=== PATIENT | male | born 1995 | race Hispanic/Latino ===

== ENCOUNTER 2019-11-07 12:21 | Emergency (ER) | payer SELFPAY ==
[~2019-11-07 12:21] MED LIST: BENADRYL25 M1 PO; ELIMITE60 GM EX
[2019-11-07 13:00] LABS: HEMATOCRIT 43.2 % (39.0-50.0); HEMOGLOBIN 15.1 g/dl (14.0-18.0); IMMATURE GRANULOCYTES 0.4 % (0.0-5.0); MEAN CORPUSCULAR HGB 30.4 pG CALC (26.0-32.0); NEUT# 5.7 thou/uL (1.82-7.42); RED BLOOD COUNT 4.97 mill/uL (4.70-6.10); RED CELL DISTRI WIDTH 12.4 % (11.5-15.5)
[2019-11-07 13:01] LABS: MEAN CELL VOLUME 86.9 fL CALC (80.0-100.0)
[2019-11-07 13:16] LABS: ALBUMIN 4.6 g/dL (3.2-5.0); ALKALINE PHOSPHATASE 80 u/l (38-126); ANION GAP 11 (6-22 (CALC)); BILIRUBIN, TOTAL 0.6 mg/dL (0.0-1.4); BUN 12 mg/dL (9-20); BUN/CREATININE RATIO 14 (12-20 (CALC)); C-REACTIVE PROTEIN 0.9 mg/dL (0-0.9); CARBON DIOXIDE 28 mmol/l (22-30); CHLORIDE 102 mmol/l (95-108); CREATININE 0.9 mg/dL (0.7-1.3); GFR > 60 ML/MIN (>=60 (CALC)); GFR FOR AFR.AMER. > 60 ML/MIN (>=60 (CALC)); POTASSIUM 3.8 mmol/l (3.5-5.1); SGOT/AST 39 u/l (17-59); SODIUM 138 mmol/l (137-146); TOTAL PROTEIN 7.8 g/dL (6.3-8.2)
[2019-11-07 13:20] LABS: URINE BILIRUBIN - DIPSTICK NEGATIVE (NEGATIVE); URINE BLOOD DIPSTICK NEGATIVE (NEGATIVE); URINE CLARITY CLEAR; URINE COLOR YELLOW; URINE GLUCOSE - DIPSTICK NEGATIVE (NEGATIVE); URINE KETONE NEGATIVE (NEGATIVE); URINE LEUK ESTERASE NEGATIVE (Negative); URINE NITRITE - DIPSTICK NEGATIVE (Negative); URINE PH 7.5 (4.5-8.0); URINE PROTEIN - DIPSTICK NEGATIVE (NEG-TRACE); URINE UROBILINOGEN - DIPSTICK 0.2 E.U./dL (0.2)
[2019-11-07] MEDS ORDERED: MEDDOSEPAK PO (14:06)
[2019-11-07 14:08] VITALS: BP 128/78
== END 2019-11-07 14:10 | disposition home or self-care (01) | DRG 556 ==
LOC: ED 12:21
DX: M25.562 Pain in left knee (principal); M25.561 Pain in right knee; L40.9 Psoriasis, unspecified

== ENCOUNTER 2023-06-22 17:44 | Emergency (ER) | payer SELFPAY ==
[~2023-06-22] VITALS: Ht 175.3 cm; Wt 72.5 kg
[2023-06-22] VITALS (8 sets, daily range): BP systolic 116–135; BP diastolic 74–111
[~2023-06-22 17:44] MED LIST changes: +MEDDOSEPAK PO
[2023-06-22] MEDS ORDERED: TAM75CAP PO (20:17)
[2023-06-22] MEDS ORDERED: VIBRAMYCIN100 M2 PO (20:17)
== END 2023-06-22 20:31 | disposition home or self-care (01) | DRG 195 ==
LOC: ED 17:44
DX: J10.1 Influenza due to other identified influenza virus with other respiratory manifestations (principal); J32.9 Chronic sinusitis, unspecified; Z20.822 Contact with and (suspected) exposure to COVID-19